=== PATIENT | female | born 1945 | race Caucasian/White ===

== ENCOUNTER → 2016-06-04 | Outpatient (CLI) | payer MEDICARE, OTHER ==
--- NOTE | ~2016-06-04 | PUL ---
PATIENT'S NAME: ESTHER POWELL [facility] AGE: 70 Y [address] ROOM: [place] [id number] LOCATION: [facility] ADMIT DATE: 06/04/2016 Pulmonary DISCHARGE DATE: FAMILY PHYSICIAN: Carol Garcia MD ATTENDING PHYSICIAN: Carol Garcia NAME OF PROCEDURE: Home Sleep Test DATE OF PROCEDURE: 06/04/16 TECH: Lance Fonseca [facility] SUMMARY: Patient underwent home sleep testing using a type III device and was studied for 8 hours 11 minutes. In that time there were 22 obstructive apneas, 2 mixed apneas, 1 central apnea, and 30 hypopneas for an apnea/hypopnea index mildly elevated at 6.7 events per hour. The majority of the events occurred with the patient sleeping supine. The supine AHI was 30.5 events per hour. Oxygen saturations ranged from 79%-96% but were below 88% for. 1.4 minutes. Heart rate ranged from 47-87 beats per minute. IMPRESSION: Mild essentially positional obstructive sleep apnea. PLAN: Patient will receive results from the ordering provider. AMINAH BARDALES MD [facility]/ /[id number] dtt: 06/07/16 1303 , Aminah Bardales dtd: 06/06/16 1307
== END | disposition disaster alternative care site (69) ==
LOC: GSLP 10:10
DX: R40.0 Somnolence (principal); G47.33 Obstructive sleep apnea (adult) (pediatric)
CPT/HCPCS: G0399